=== PATIENT | female | born 2000 | race Caucasian/White ===

== ENCOUNTER 2021-12-22 15:22 | Outpatient (CLI) | payer BC, SELFPAY ==
--- NOTE | ~2021-12-22 | US_ITS ---
EXAMINATION: US thyroid DATE: 12/22/2021 15:56 INDICATION: Nontoxic goiter TECHNIQUE: Multiple ultrasound images of the thyroid were obtained. COMPARISON: None. FINDINGS: The right thyroid lobe measures 7.8 x 2.3 x 1.9 cm. The left thyroid lobe measures 6.7 x 1.8 x 1.8 c m. Diffuse heterogeneous echogenicity with coarsened echotexture and increased vascular flow througho ut both thyroid lobes. No discrete nodules identified. IMPRESSION: 1. Enlarged heterogeneous thyroid with coarsened echotexture and increased vascular flow but without discrete nodules. Appearance can be seen in the setting of thyroiditis or Graves' disease. Reviewed, dictated and finalized at location B. IMPRESSION: 1. Enlarged heterogeneous thyroid with coarsened echotexture and increased vasc ular flow but without discrete nodules. Appearance can be seen in the setting o f thyroiditis or Graves' disease.
[2021-12-22 17:08] LABS: Free T4 Free Thyroxine 1.12 ng/mL (0.78-2.19)
[2021-12-26 04:00] LABS: Thyroid Peroxidase Antibodies 478 IU/mL (<9)
== END 2021-12-22 15:23 | disposition home or self-care (01) ==
PROVIDERS: Visit Provider Obstetrics & Gynecology
DX: E04.9 Nontoxic goiter, unspecified (principal)
CPT/HCPCS: 36415; 76536; 84439; 84443; 86376

== ENCOUNTER 2023-01-17 07:56 | Outpatient (CLI) | payer BC, SELFPAY ==
[2023-01-17 18:14] LABS: Free T4 Free Thyroxine 1.58 ng/mL (0.78-2.19); Vitamin D 25 Hydroxy 29.7 ng/mL
[2023-01-21 05:07] LABS: Thyroid Peroxidase Antibodies 57 IU/mL (<9)
== END 2023-01-17 07:57 | disposition home or self-care (01) ==
LOC: ANHLAB 07:57
PROVIDERS: PCP Internal Medicine; Visit Provider Internal Medicine
DX: E03.9 Hypothyroidism, unspecified (principal)
CPT/HCPCS: 36415; 82306; 82607; 84439; 84443; 86376

== ENCOUNTER 2023-06-06 08:15 | Outpatient (CLI) | payer BC, SELFPAY ==
--- NOTE | ~2023-06-06 | MR_ITS ---
EXAMINATION: MR pituitary wo/w con DATE: 06/06/2023 09:23 INDICATION: Hypothyroidism. Hyperprolactinemia. TECHNIQUE: Magnetic resonance imaging (MRI) of the brain and brainstem was performed without and with 14 mL MultiHance intravenous contrast. COMPARISON: None. FINDINGS: The pituitary is normal in size with height of 8 mm. The infundibulum is at the midline. Th ere is no intracranial hemorrhage, acute infarction, or abnormal intracranial mass lesion. The ventri cles are normal in size. The paranasal sinuses are clear. The mastoid air cells are normal. The orbit s are normal. The adenoids are enlarged. IMPRESSION: 1. Normal brain. 2. Enlarged adenoids. Reviewed, dictated and finalized at location E.
== END 2023-06-06 08:16 ==
LOC: GOSHIMG 08:16
PROVIDERS: PCP Internal Medicine; Visit Provider Internal Medicine
DX: E03.9 Hypothyroidism, unspecified (principal); R79.89 Other specified abnormal findings of blood chemistry; J35.2 Hypertrophy of adenoids
CPT/HCPCS: 70553; A9577

== ENCOUNTER 2023-06-16 11:17 | Outpatient (CLI) | payer BC, SELFPAY ==
[2023-06-16 15:41] LABS: Free T4 Free Thyroxine 2.07 ng/mL (0.78-2.19)
[2023-06-19 14:00] LABS: FSH 2.4 mIU/mL (***); LH 2.2 mIU/mL (***); Prolactin 14.8 ng/mL (***)
[2023-06-20 17:37] LABS: Thyrotropin Receptor Antibody <1.00 IU/L (<=2.00)
[2023-06-21 00:09] LABS: Adrenocorticotropic Hormone 22 pg/mL (6-50)
[2023-06-21 12:07] LABS: Growth Hormone ICMA 0.5 ng/mL (<=7.1)
[2023-06-21 14:05] LABS: Thyroid Stimulating Immunoglob <89 % baseline (<140)
== END 2023-06-16 11:18 | disposition home or self-care (01) ==
LOC: ANHGOSHLAB 11:18
PROVIDERS: PCP Internal Medicine; Visit Provider Internal Medicine
DX: E03.9 Hypothyroidism, unspecified (principal); R79.89 Other specified abnormal findings of blood chemistry
CPT/HCPCS: 36415; 82024; 82533; 83001; 83002; 83003; 83519; 84146; 84305; 84439; 84443; 84445